=== PATIENT | female | born 1990 | race Caucasian/White ===

== ENCOUNTER 2017-09-15 08:54 | Emergency (ER) | payer OTHER ==
[~2017-09-15] VITALS: Ht 165.1 cm; Wt 81.2 kg
[~2017-09-15 08:54] MED LIST: ADVAIR 250/501 DISK IH; ALBUTEROL17 G1 IH; ALLEGRA D PO; Advair 250/50 Diskus IH; CIPRO500 MG PO; DOCUSATE SODIU100 MG PO; ENDOCET 5-3251 EACH PO; FLEXERIL10 MG PO; IBUPROFEN800 MG PO; MOTRIN800 MG PO; Motrin PO; NATALCARE RX1 TABLET PO; PRENATAL TABLE1 EACH PO; PYRIDIUM100 MG PO; Percocet 5/325,Endoc PO; Proventil,Ventolin H IH; ULTRAM50 MG PO; VALTREX50 MG/ML PO; ~No Medications
[2017-09-15 10:22] LABS: APPEARANCE SL.HAZY ((CLEAR)); BILIRUBIN NEGATIVE; BLOOD NEGATIVE; COLOR YELLOW ((YELLOW)); GLUCOSE (STRIP) NEGATIVE; KETONES NEGATIVE; LEUKOCYTES NEGATIVE; NITRITE NEGATIVE; PROTEIN (STRIP) NEGATIVE; SPECIFIC GRAVITY 1.008 (1.000-1.030); UROBILINOGEN 0.2 MG/DL (0.2-1.0)
[2017-09-15 10:24] LABS: BACTERIA NONE SEEN /HPF; EPITHELIAL CELLS 1+ /HPF; MUCUS NONE SEEN /LPF; RED BLOOD CELLS 0-5 /HPF (0-5); WHITE BLOOD CELLS 0-5 /HPF (0-5)
[2017-09-15] MEDS ORDERED: FLEXERIL10 MG PO (12:13)
[2017-09-15] MEDS ORDERED: NORCO 5/3251 TABLET PO (12:13)
[2017-09-15 12:26] VITALS: BP 114/72
== END 2017-09-15 12:27 | disposition home or self-care (01) ==
LOC: EME 08:54
PROVIDERS: Physician Assistant
DX: S29.011A Strain of muscle and tendon of front wall of thorax, initial encounter (principal); M54.9 Dorsalgia, unspecified; J45.909 Unspecified asthma, uncomplicated; Z88.2 Allergy status to sulfonamides
CPT/HCPCS: 71046; 81003; 99281; 99284; J1885